=== PATIENT | male | born 1960 | race African-American/Black ===

== ENCOUNTER 2024-11-10 08:53 | Emergency (ER) | payer MEDICAID, MEDICARE, OTHER ==
[~2024-11-10] VITALS: Ht 185.4 cm; Wt 95.5 kg
[~2024-11-10 08:53] MED LIST: ASPI-1444 PO; HYDR25TA2 PO; LISI-893 PO
[2024-11-10 08:57] VITALS: TEMP 97.2
[2024-11-10] MEDS: IBUPROFEN 600 MG TABLET PO ONE (10:43)
[2024-11-10 11:08] VITALS: BP 116/74; PULSE 72; RESP 16; O2SAT 99
[2024-11-10] MEDS ORDERED: IBUP-1492 PO (11:28)
[2024-11-10] MEDS ORDERED: CYCL-448 PO (11:28)
== END 2024-11-10 11:30 | disposition home or self-care (01) ==
LOC: EMS 09:01
DX: G89.29 Other chronic pain (principal); M54.50 Low back pain, unspecified; I10 Essential (primary) hypertension; J45.909 Unspecified asthma, uncomplicated; Z79.82 Long term (current) use of aspirin; Z79.899 Other long term (current) drug therapy; V59.40XA Driver of pick-up truck or van injured in collision with unspecified motor vehicles in traffic accident, initial encounter; Y93.89 Activity, other specified; Y92.410 Unspecified street and highway as the place of occurrence of the external cause; Y99.8 Other external cause status
CPT/HCPCS: 99283